=== PATIENT | female | born 1970 | race Caucasian/White ===

== ENCOUNTER 2024-01-08 09:05 | Outpatient (CLI) | payer BC | END 2024-01-08 09:06 | disposition home or self-care (01) | LOC: NAV CT 09:05 | PROVIDERS: ATTEND Orthopaedic Surgery | DX: R91.8 Other nonspecific abnormal finding of lung field (principal) | CPT/HCPCS: 71250 ==

== ENCOUNTER 2024-02-05 08:20 | Outpatient (CLI) | payer BC ==
[2024-02-05] MEDS ORDERED: Iopamidol 370 76% 100 ML VIAL ONE (09:00)
== END 2024-02-05 08:21 | disposition home or self-care (01) ==
LOC: NAV CT 08:20
PROVIDERS: ATTEND Family Medicine
DX: R91.8 Other nonspecific abnormal finding of lung field (principal)
CPT/HCPCS: 71260; Q9967